=== PATIENT | male | born 1950 | race Native Hawaiian/Other Pacific Islander ===

== ENCOUNTER 2016-11-08 07:51 | Outpatient (CLI) | payer OTHER | END 2016-11-08 08:51 | disposition home or self-care (01) | LOC: NM 07:51 | DX: M54.5 Low back pain (principal) | CPT/HCPCS: A9561 ==

== ENCOUNTER 2017-01-27 10:06 | Outpatient (CLI) | payer OTHER | END 2017-01-27 11:15 | disposition home or self-care (01) | LOC: RAD 10:06 | DX: R10.12 Left upper quadrant pain (principal); R07.81 Pleurodynia ==

== ENCOUNTER 2017-02-13 09:29 | Outpatient (CLI) | payer OTHER | END 2017-02-13 10:30 | disposition home or self-care (01) | LOC: CT 09:29 | DX: R10.12 Left upper quadrant pain (principal) | CPT/HCPCS: 36415; 82565; 84520; Q9963 ==

== ENCOUNTER 2017-02-17 10:42 | Outpatient (CLI) | payer OTHER | END 2017-02-17 19:09 | disposition home or self-care (01) | LOC: CT 10:42 | DX: R19.09 Other intra-abdominal and pelvic swelling, mass and lump (principal) | CPT/HCPCS: Q9963 ==

== ENCOUNTER 2017-03-03 13:02 | Outpatient (CLI) | payer OTHER | END 2017-03-03 19:15 | disposition home or self-care (01) | LOC: MRI 13:02 | DX: R19.09 Other intra-abdominal and pelvic swelling, mass and lump (principal) | CPT/HCPCS: A9576 ==

== ENCOUNTER 2017-05-03 11:02 | Outpatient (CLI) | payer OTHER | END 2017-05-03 19:07 | disposition home or self-care (01) | LOC: RAD 11:02 | DX: J44.1 Chronic obstructive pulmonary disease with (acute) exacerbation (principal) ==

== ENCOUNTER 2017-06-12 09:32 | Outpatient (CLI) | payer OTHER | END 2017-06-12 11:00 | disposition home or self-care (01) | LOC: MRI 09:32 | DX: M99.82 Other biomechanical lesions of thoracic region (principal) | CPT/HCPCS: 36415; 82565; 84520; A9576 ==

== ENCOUNTER 2017-10-26 12:46 | Outpatient (CLI) | payer OTHER | END 2017-10-26 22:57 | disposition home or self-care (01) | LOC: RAD 12:46 | DX: J44.1 Chronic obstructive pulmonary disease with (acute) exacerbation (principal) ==

== ENCOUNTER 2017-12-22 08:59 | Outpatient (CLI) | payer OTHER | END 2017-12-22 22:36 | disposition home or self-care (01) | LOC: CT 08:59 | DX: R06.02 Shortness of breath (principal) ==

== ENCOUNTER 2018-02-16 15:04 | Outpatient (CLI) | payer OTHER ==
[2018-02-16 15:19] LABS: POTASSIUM 3.3 mmol/L (3.6-5.2)
== END 2018-02-16 22:06 | disposition home or self-care (01) ==
LOC: LABW 15:04
PROVIDERS: Specialist
DX: R00.0 Tachycardia, unspecified (principal); I10 Essential (primary) hypertension
CPT/HCPCS: 36415; 80048

== ENCOUNTER 2018-02-20 10:17 | Observation (INO) | payer OTHER ==
[~2018-02-20] VITALS: Ht 171.4 cm; Wt 82.3 kg
[2018-02-20 11:07] LABS: PLATELET COUNT 205 K/uL (142-355)
[2018-02-20 11:15] VITALS: BP 146/88; TEMP 97.6; Ht 171.4 cm; Wt 82.3 kg
[2018-02-20] MEDS ORDERED: CORRECTOL100 MG PO (11:31)
[2018-02-20] MEDS ORDERED: FLUTICASONE50 MCG (11:32)
[2018-02-20] MEDS ORDERED: DIGITEK0.25 MG PO (11:32)
[2018-02-20] MEDS ORDERED: HYDR5TAB9 PO (11:33)
[2018-02-20] MEDS ORDERED: K-TAB20 MEQ PO (11:34)
[2018-02-20] MEDS ORDERED: NEURONTIN 100M100 MG PO (11:37)
[2018-02-20] MEDS ORDERED: TRAM50TA PO (11:37)
[2018-02-20] MEDS ORDERED: FORTAMET500 MG PO (11:39)
[2018-02-20] MEDS ORDERED: LISI20TA31 PO (11:40)
[2018-02-20] MEDS ORDERED: ANORO ELLIPTA 61 AER IN (11:41)
[2018-02-20] MEDS ORDERED: GLIP10TA55 PO (11:43)
[2018-02-20] MEDS ORDERED: CARAFATE1 GM PO ×2 (11:43→11:48)
[2018-02-20 11:50] LABS: PARTIAL THROMBOPLASTIN TIME 26.5 SECONDS (24.5-33.6)
[2018-02-20 12:07] LABS: POTASSIUM 3.9 mmol/L (3.6-5.2); SODIUM 139 mmol/L (136-145)
[2018-02-20 16:00] VITALS: BP 126/99; TEMP 98
[2018-02-20 20:17] VITALS: BP 121/69; TEMP 98.2
[2018-02-21] VITALS: BP 134/84; TEMP 98.2
[2018-02-21 03:46] LABS: PLATELET COUNT 198 K/uL (142-355)
[2018-02-21 04:07] LABS: POTASSIUM 3.7 mmol/L (3.6-5.2)
[2018-02-21 04:11] VITALS: BP 108/72; TEMP 97.7
[2018-02-21 07:54] VITALS: BP 122/81; TEMP 97.8
[2018-02-21 12:00] VITALS: BP 138/90; TEMP 97.9
== END 2018-02-21 15:21 | disposition home or self-care (01) ==
LOC: MED/SURG 10:17
PROVIDERS: ADMIT Family Medicine
DX: I48.91 Unspecified atrial fibrillation (principal); R06.09 Other forms of dyspnea; R00.0 Tachycardia, unspecified
CPT/HCPCS: 36415; 80053; 80162; 82248; 82550; 83735; 83880; 84100; 84443; 84484; 85027; 85610; 85730; 87040; 93005; 94760; 99220; G0378; G0379; J1650; J1940

== ENCOUNTER 2018-03-21 11:35 | Outpatient (CLI) | payer OTHER ==
[~2018-03-21 11:35] MED LIST: ANORO ELLIPTA 61 AER IN; CARAFATE1 GM PO; CORRECTOL100 MG PO; DIGITEK0.25 MG PO; FLUTICASONE50 MCG; FORTAMET500 MG PO; GLIP10TA55 PO; HYDR5TAB9 PO; K-TAB20 MEQ PO; LISI20TA31 PO; NEURONTIN 100M100 MG PO; TRAM50TA PO
[2018-03-21 12:39] LABS: POTASSIUM 3.9 mmol/L (3.6-5.2)
== END 2018-03-21 23:59 | disposition home or self-care (01) ==
LOC: LABW 11:35
PROVIDERS: Nurse Practitioner Adult Health
DX: I48.0 Paroxysmal atrial fibrillation (principal); R06.02 Shortness of breath
CPT/HCPCS: 36415; 80048; 84436; 84443; 84479; 85379

== ENCOUNTER 2018-06-01 09:30 | Outpatient (CLI) | payer OTHER | END 2018-06-01 19:26 | disposition home or self-care (01) | LOC: RAD 09:30 | DX: M40.295 Other kyphosis, thoracolumbar region (principal) ==

== ENCOUNTER 2019-01-21 10:18 | Outpatient (CLI) | payer OTHER | END 2019-01-21 19:36 | disposition home or self-care (01) | LOC: CT 10:18 | DX: R19.5 Other fecal abnormalities (principal); N20.0 Calculus of kidney; D35.02 Benign neoplasm of left adrenal gland | CPT/HCPCS: 36415; 82565; 84520; Q9963 ==

== ENCOUNTER 2019-04-01 09:14 | Outpatient (CLI) | payer OTHER | END 2019-04-01 23:59 | disposition home or self-care (01) | LOC: CT 09:14 | DX: J44.9 Chronic obstructive pulmonary disease, unspecified (principal); R91.1 Solitary pulmonary nodule ==

== ENCOUNTER 2019-06-11 08:12 | Outpatient (CLI) | payer OTHER ==
[~2019-06-11] VITALS: Ht 175.3 cm; Wt 74.8 kg
== END 2019-06-11 20:31 | disposition home or self-care (01) ==
LOC: NM 08:12
DX: I48.91 Unspecified atrial fibrillation (principal); R07.89 Other chest pain; I10 Essential (primary) hypertension
CPT/HCPCS: 93306; A9500; J2785

== ENCOUNTER 2019-07-22 09:24 | Outpatient (CLI) | payer OTHER ==
[2019-07-22 09:48] LABS: PLATELET COUNT 256 K/uL (142-355)
[2019-07-22 09:51] LABS: POTASSIUM 4.2 mmol/L (3.6-5.2)
== END 2019-07-22 22:55 | disposition home or self-care (01) ==
LOC: LABW 09:24
PROVIDERS: Specialist
DX: R07.89 Other chest pain (principal); R93.1 Abnormal findings on diagnostic imaging of heart and coronary circulation
CPT/HCPCS: 36415; 80053; 85027

== ENCOUNTER 2019-07-23 08:56 | Outpatient (CLI) | payer OTHER | END 2019-07-23 20:06 | disposition home or self-care (01) | LOC: LABW 08:56 | DX: Z01.818 Encounter for other preprocedural examination (principal); D72.828 Other elevated white blood cell count | CPT/HCPCS: 81000 ==

== ENCOUNTER 2019-07-29 10:13 | Outpatient (CLI) | payer OTHER | END 2019-07-29 20:14 | disposition home or self-care (01) | LOC: LABW 10:13 | PROVIDERS: Nurse Practitioner Adult Health | DX: E11.9 Type 2 diabetes mellitus without complications (principal); Z79.899 Other long term (current) drug therapy | CPT/HCPCS: 36415; 80048 ==

== ENCOUNTER 2019-08-05 15:25 | Outpatient (CLI) | payer OTHER ==
[2019-08-05 15:53] LABS: POTASSIUM 4.1 mmol/L (3.6-5.2)
== END 2019-08-05 21:33 | disposition home or self-care (01) ==
LOC: LABW 15:25
PROVIDERS: Nurse Practitioner Adult Health
DX: E11.9 Type 2 diabetes mellitus without complications (principal); I10 Essential (primary) hypertension; Z79.899 Other long term (current) drug therapy
CPT/HCPCS: 36415; 80048

== ENCOUNTER 2019-08-12 11:18 | Outpatient (CLI) | payer OTHER ==
[2019-08-12 11:53] LABS: POTASSIUM 4.5 mmol/L (3.6-5.2)
== END 2019-08-12 22:34 | disposition home or self-care (01) ==
LOC: LABW 11:18
PROVIDERS: Nurse Practitioner Adult Health
DX: I10 Essential (primary) hypertension (principal); Z79.899 Other long term (current) drug therapy
CPT/HCPCS: 36415; 80048

== ENCOUNTER 2020-02-28 03:24 | Emergency (ER) | payer OTHER ==
[~2020-02-28] VITALS: Ht 170.2 cm; Wt 61.2 kg
[2020-02-28 03:56] LABS: PARTIAL THROMBOPLASTIN TIME 29.1 SECONDS (24.5-33.6)
[2020-02-28 03:59] LABS: PLATELET COUNT 289 K/uL (142-355)
[2020-02-28 04:00] LABS: SODIUM 133 mmol/L (136-145)
[2020-02-28 05:33] VITALS: BP 115/52; TEMP 98
== END 2020-02-28 05:33 | disposition home or self-care (01) ==
LOC: ED 03:24
PROVIDERS: Hospitalist
DX: R42 Dizziness and giddiness (principal); E11.649 Type 2 diabetes mellitus with hypoglycemia without coma; Z79.84 Long term (current) use of oral hypoglycemic drugs; Z51.81 Encounter for therapeutic drug level monitoring; E86.0 Dehydration; W18.39XA Other fall on same level, initial encounter; Y92.098 Other place in other non-institutional residence as the place of occurrence of the external cause
CPT/HCPCS: 36415; 80053; 80320; 83880; 84484; 85027; 85610; 85730; 93005; 96360; 96361; 96365; 96375; 99284; J0696; J7060

== ENCOUNTER 2020-04-15 13:27 | Outpatient (CLI) | payer OTHER | END 2020-04-15 23:34 | disposition home or self-care (01) | LOC: MRI 13:27 | DX: F17.210 Nicotine dependence, cigarettes, uncomplicated (principal); E27.8 Other specified disorders of adrenal gland | CPT/HCPCS: 36415; 82565; 84520; A9576; G0297-TC ==

== ENCOUNTER 2020-09-14 09:44 | Outpatient (CLI) | payer OTHER | END 2020-09-14 22:40 | disposition home or self-care (01) | LOC: RESP 09:44 | PROVIDERS: ATTEND Specialist | DX: I42.0 Dilated cardiomyopathy (principal) ==

== ENCOUNTER 2021-07-15 08:19 | Outpatient (CLI) | payer OTHER ==
[~2021-07-15] VITALS: Ht 170.2 cm; Wt 56.7 kg
== END 2021-07-15 18:49 | disposition home or self-care (01) ==
LOC: NM 08:19
PROVIDERS: ATTEND Specialist
DX: I25.118 Atherosclerotic heart disease of native coronary artery with other forms of angina pectoris (principal)
CPT/HCPCS: A9500; J2785

== ENCOUNTER 2021-08-11 09:26 | Outpatient (CLI) | payer OTHER | END 2021-08-11 19:57 | disposition home or self-care (01) | LOC: RESP 09:26 | PROVIDERS: ATTEND Specialist | DX: I48.0 Paroxysmal atrial fibrillation (principal) | CPT/HCPCS: 93225 ==

== ENCOUNTER 2021-10-12 13:54 | Outpatient (CLI) | payer OTHER | END 2021-10-12 19:00 | disposition home or self-care (01) | LOC: CT 13:54 | PROVIDERS: ATTEND Internal Medicine Critical Care Medicine | DX: J44.9 Chronic obstructive pulmonary disease, unspecified (principal); R93.89 Abnormal findings on diagnostic imaging of other specified body structures ==

== ENCOUNTER 2021-12-14 15:25 | Outpatient (CLI) | payer OTHER | END 2021-12-14 19:12 | disposition home or self-care (01) | LOC: RAD 15:25 | PROVIDERS: ATTEND Nurse Practitioner Family | DX: M54.17 Radiculopathy, lumbosacral region (principal) ==

== ENCOUNTER 2022-01-30 21:41 | Emergency (ER) | payer OTHER ==
[~2022-01-30] VITALS: Ht 170.2 cm; Wt 56.7 kg
[2022-01-30 21:54] LABS: PLATELET COUNT 233 K/uL (142-355)
[2022-01-30 22:20] LABS: PARTIAL THROMBOPLASTIN TIME 27.9 SECONDS (24.5-33.6)
[2022-01-30 22:23] LABS: POTASSIUM 3.8 mmol/L (3.6-5.2)
[2022-01-30 23:00] VITALS: BP 124/71; TEMP 98.2
== END 2022-01-30 23:00 | disposition short-term general hospital (02) ==
LOC: ED 21:41
PROVIDERS: Hospitalist
DX: I21.29 ST elevation (STEMI) myocardial infarction involving other sites (principal); Z11.52 Encounter for screening for COVID-19
CPT/HCPCS: 36415; 51702; 80053; 80162; 81002; 82550; 83880; 84484; 85027; 85610; 85730; 87635; 93005; 96365; 96375; 99285; J1644; J1940; J2270; U0003

== ENCOUNTER 2022-02-08 15:30 | Emergency (ER) | payer OTHER ==
[~2022-02-08] VITALS: Ht 170.2 cm; Wt 56.7 kg
[2022-02-08 15:34] VITALS: TEMP 96.7
[2022-02-08 15:53] LABS: PLATELET COUNT 350 K/uL (142-355)
[2022-02-08 16:02] LABS: POTASSIUM 3.8 mmol/L (3.6-5.2)
[2022-02-08 16:16] LABS: PARTIAL THROMBOPLASTIN TIME 28.1 SECONDS (24.5-33.6)
[2022-02-08 17:30] VITALS: BP 128/74
== END 2022-02-08 18:00 ==
LOC: ED 15:30
PROVIDERS: Emergency Medicine
DX: I50.9 Heart failure, unspecified (principal); R94.31 Abnormal electrocardiogram [ECG] [EKG]; E11.8 Type 2 diabetes mellitus with unspecified complications; Z79.4 Long term (current) use of insulin; Z11.52 Encounter for screening for COVID-19
CPT/HCPCS: 80053; 83880; 84484; 85027; 85610; 85730; 87635; 93005; 96374; 99284; J1940; U0003

== ENCOUNTER 2022-03-25 12:27 | Outpatient (CLI) | payer OTHER | END 2022-03-25 19:10 | disposition home or self-care (01) | LOC: US 12:27 | PROVIDERS: ATTEND Nurse Practitioner Family | DX: R60.0 Localized edema (principal) ==

== ENCOUNTER 2022-04-13 13:04 | Outpatient (CLI) | payer OTHER | END 2022-04-13 19:10 | disposition home or self-care (01) | LOC: US 13:04 | PROVIDERS: ATTEND Nurse Practitioner Family | DX: R60.0 Localized edema (principal) ==

== ENCOUNTER 2022-06-01 10:11 | Inpatient (IN) | payer OTHER ==
[~2022-06-01] VITALS: Ht 170.2 cm; Wt 69.6 kg
[2022-06-01 10:29] VITALS: BP 118/95; TEMP 97.2
[2022-06-01 11:13] LABS: PLATELET COUNT 142 K/uL (142-355)
[2022-06-01 11:22] LABS: POTASSIUM 4.2 mmol/L (3.6-5.2)
[2022-06-01 11:25] LABS: PARTIAL THROMBOPLASTIN TIME 30.1 SECONDS (24.5-33.6)
[2022-06-01 19:56] VITALS: BP 102/76; TEMP 97.6; Ht 170.2 cm; Wt 69.6 kg
[2022-06-01] MEDS ORDERED: VITAMIN D5000 UNIT PO (20:09)
[2022-06-01] MEDS ORDERED: ENTRESTO 24-261 TAB PO (20:10)
[2022-06-01] MEDS ORDERED: LIPITOR40 MG PO (20:10)
[2022-06-01] MEDS ORDERED: LORA10TA3 PO (20:11)
[2022-06-01] MEDS ORDERED: ELIQUIS5 MG PO (20:11)
[2022-06-01] MEDS ORDERED: FURO20TA67 PO (20:11)
[2022-06-01] MEDS ORDERED: [UNRECOGNIZED DRUG - OTHER] SL (20:12)
[2022-06-01] MEDS ORDERED: ASPIRIN ADULT L81 M1 PO (20:13)
[2022-06-01] MEDS ORDERED: ROPINIROLE0.5 MG PO (20:13)
[2022-06-01] MEDS ORDERED: METF100038 PO (20:13)
[2022-06-01] MEDS ORDERED: FERROUS SULF325 M1 PO (20:15)
[2022-06-01] MEDS ORDERED: SPIRONOLACT25 MG PO (20:15)
[2022-06-01] MEDS ORDERED: TRULICITY0.75 MG/0. SC (20:16)
[2022-06-01] MEDS ORDERED: ANORO ELLIPTA 61 AER INH (20:16)
[2022-06-01] MEDS ORDERED: TRAMADOL HYDROC50 MG PO (20:18)
[2022-06-01] MEDS ORDERED: ALBUTEROL0.083 % INH (20:18)
[2022-06-01] MEDS ORDERED: CARV3.12 PO (20:19)
[2022-06-01] MEDS ORDERED: MUPIROCIN2 % EX (20:20)
[2022-06-01] MEDS ORDERED: VITAMIN B-121000 MC2 PO (20:20)
[2022-06-01] MEDS ORDERED: TYLENOL325 MG PO (20:21)
[2022-06-01] MEDS ORDERED: DICLOFENAC SODIUM1 % TD (20:23)
[2022-06-01 23:55] VITALS: BP 100/67; TEMP 97.4
[2022-06-02 03:07] LABS: PLATELET COUNT 129 K/uL (142-355)
[2022-06-02 03:28] LABS: POTASSIUM 4.2 mmol/L (3.6-5.2)
[2022-06-02 04:24] VITALS: BP 106/79; TEMP 98.2
[2022-06-02 06:29] VITALS: BP 97/67; TEMP 97.4
[2022-06-02 12:00] VITALS: BP 112/74; TEMP 97.8
[2022-06-02] MEDS ORDERED: ROPINIROLE1 MG PO (15:44)
[2022-06-02 16:00] VITALS: BP 91/62; TEMP 97.5
[2022-06-02 16:03] LABS: POTASSIUM 4.5 mmol/L (3.6-5.2)
[2022-06-02 20:03] VITALS: BP 92/67; TEMP 96.6
[2022-06-02 23:56] VITALS: BP 107/77; TEMP 97.3
[2022-06-03 04:00] VITALS: BP 112/82; TEMP 97.5
[2022-06-03 04:21] LABS: PLATELET COUNT 113 K/uL (142-355)
[2022-06-03 05:12] LABS: POTASSIUM 5.7 mmol/L (3.6-5.2)
[2022-06-03 08:00] VITALS: BP 108/78; TEMP 98.1
[2022-06-03 12:07] VITALS: BP 100/60; TEMP 98.3
[2022-06-03 12:42] LABS: POTASSIUM 5.1 mmol/L (3.6-5.2)
[2022-06-03 16:07] VITALS: BP 100/78; TEMP 98.1
== END 2022-06-03 17:06 | disposition home health service (06) | DRG 292 ==
LOC: ED 10:11 → MED/SURG 15:10
PROVIDERS: Emergency Medicine; ADMIT Family Medicine; ATTEND Internal Medicine
DX: I11.0 Hypertensive heart disease with heart failure (principal); L97.329 Non-pressure chronic ulcer of left ankle with unspecified severity; L97.819 Non-pressure chronic ulcer of other part of right lower leg with unspecified severity; L97.529 Non-pressure chronic ulcer of other part of left foot with unspecified severity; L97.519 Non-pressure chronic ulcer of other part of right foot with unspecified severity; I50.9 Heart failure, unspecified; I73.89 Other specified peripheral vascular diseases; R60.9 Edema, unspecified; I25.10 Atherosclerotic heart disease of native coronary artery without angina pectoris; E11.65 Type 2 diabetes mellitus with hyperglycemia; J44.9 Chronic obstructive pulmonary disease, unspecified; G25.81 Restless legs syndrome; I48.91 Unspecified atrial fibrillation; Z79.01 Long term (current) use of anticoagulants; I25.2 Old myocardial infarction
CPT/HCPCS: 36415; 80048; 80053; 80061; 81002; 82948; 83690; 83735; 83880; 84443; 84484; 85027; 85379; 85610; 85730; 87635; 93005; 94760; 96367; 96372; 96374; 99220; 99284; G0378; J1650; J1940; J2270; J3490; P9047; Q9963; U0003